=== PATIENT | female | born 1985 | race Caucasian/White ===

== ENCOUNTER 2016-07-20 13:37 | Outpatient (CLI) | payer BC ==
[2016-07-20 15:32] VITALS: BP 141/81; PULSE 86; RESP 18; TEMP 98.4
== END 2016-07-20 14:35 | disposition home or self-care (01) ==
LOC: FBPOP 13:37
PROVIDERS: ATTEND Obstetrics & Gynecology
DX: O26.93 Pregnancy related conditions, unspecified, third trimester (principal); Z3A.38 38 weeks gestation of pregnancy
CPT/HCPCS: 59025; 99213

== ENCOUNTER 2016-07-21 21:55 | Inpatient (IN) | payer BC ==
[2016-07-21] MEDS ORDERED: CITRIC ACID-SODIUM CITRATE 15 ML CUP PO ONE (22:19)
[2016-07-21] MEDS ORDERED: LACTATED RINGERS 1,000 ML IV ONE (22:19)
[2016-07-21] MEDS ORDERED: ceFAZolin 2 GM in SODIUM CHLORIDE 0.9% 100 ML IVPB STA (22:27)
--- NOTE | 2016-07-21 22:32 | P.HPOB ---
History of Present Illness H&P Date: 07/21/16 Chief Complaint: Labor at 38+ weeks This is a 30-year-old 2 para 1001 woman with an estimated due date of who presents at 38-3/7 weeks gestation in spontaneous active labor. She reports onset of regular uterine contractions approximately 2 hours ago. She denies leakage of fluids or vaginal bleeding. Her obstetric history is significant for previous low transverse section at 39 weeks for breech presentation. She declines vaginal after and requests repeat section. Laboratory data: Group B strep negative, blood type A+, antibody screen negative , rubella immune, VDRL nonreactive, hepatitis B surface antigen negative, HIV negative Review of Systems All systems: negative Past Medical History Past Medical History: No Reported History History of Any Multi-Drug Resistant Organisms: None Reported Past Surgical History: Section Additional Past Surgical History / Comment(s): wisdom teeth Past Anesthesia/Blood Transfusion Reactions: No Reported Reaction Past Psychological History: No Psychological Hx Reported Smoking Status: Never smoker Past Alcohol Use History: None Reported Past Drug Use History: None Reported - Past Family History Mother Family Medical History: No Reported History Medications and Allergies Home Medications Medication Instructions Recorded Confirmed Type Pnv with Ca,No.72/Iron/FA 1 each PO DAILY 07/20/16 07/21/16 History [ Plus Tablet] Allergies Allergy/AdvReac Type Severity Reaction Status Date / Time Penicillins AdvReac Unknown Verified 07/21/16 22:19 Exam - Vital Signs Vital signs: Vital Signs Temp Pulse Resp BP 07/21/16 22:24 97.2 F L 65 16 136/82 Intake and Output 07/21/16 07/21/16 07/21/16 06:59 14:59 22:59 Other: Weight 73.936 kg Patient Weight 07/22/16 06:59 Weight 73.936 kg Targeted physical exam was performed. The patient is visibly gravid female in active labor. Abdomen is gravid with a fundal height of approximately 38 cm. Strong palpable contractions. Cervix is 4 cm dilated, 90 % effaced and the vertex is in the -2 station. Bulging membranes. heart tones are reassuring by external monitoring. She is janiya every 2 minutes spontaneously. Assessment and Plan (1) 38 weeks gestation of Status: Acute (2) History of Status: Acute (3) Spontaneous onset of labor Status: Acute Plan: This is a 30-year-old 2 para 1 woman at 38-3/7 weeks gestation who presents in spontaneous active labor. She has history of previous low transverse section and is requesting repeat section for delivery. She did declines trial of labor. status is currently reassuring by external monitoring. She is group B strep negative and Rh+ . Risks benefits and alternatives to repeat have been reviewed with the patient in detail in the office setting.
[2016-07-21 22:47] LABS: Basophils % (A) 0 %; CH 29.9; CHCM 34.2; Eosinophils # (A) 0.2 k/uL (0-0.7); Eosinophils % (A) 2 %; HCT 38.6 % (34.0-46.0); HDW 2.47; HGB 12.9 gm/dL (11.4-16.0); Luc # (Auto) 0.29; Luc % (Auto) 3; Lymphocytes # (A) 1.4 k/uL (1.0-4.8); Lymphocytes % (A) 14 %; MCH 29.3 pg (25.0-35.0); MCHC 33.4 g/dL (31.0-37.0); MCV 87.8 fL (80.0-100.0); Mean Platelet Volume 6.8; Monocytes # (A) 0.5 k/uL (0-1.0); Monocytes % (A) 5 %; Neutrophils # (A) 8.1 k/uL (1.3-7.7); Neutrophils % (A) 76 %; RBC 4.39 m/uL (3.80-5.40); WBC 10.6 k/uL (3.8-10.6); WBC (Perox) 10.89
[2016-07-21] MEDS ORDERED: ONDANSETRON 4 MG/2 ML VIAL ONE (22:54)
[2016-07-21] MEDS ORDERED: MORPHINE SULFATE (PF) 0.3 MG/0.3 ML SYR ONE (22:54)
[2016-07-21] MEDS ORDERED: KETOROLAC 30 MG/ML 1 ML VIAL ONE (22:54)
[2016-07-21] MEDS ORDERED: OXYTOCIN 10 UNIT/ML 1 ML VIAL ONE (22:54)
[2016-07-21] MEDS ORDERED: PHENYLEPHRINE-0.9% NACL SYG 1 MG/10 ML SYRINGE ONE (22:54)
[2016-07-21] MEDS ORDERED: NALBUPHINE 10 MG/ML AMPUL ONE (22:54)
[2016-07-21] MEDS ORDERED: ePHEDrine 50 MG/ML 1 ML AMP ONE (22:54)
[2016-07-21] MEDS ORDERED: diphenhydrAMINE 50 MG CAP PO PRN (23:37)
[2016-07-21] MEDS ORDERED: diphenhydrAMINE 25 MG CAP PO PRN (23:37)
[2016-07-21] MEDS ORDERED: diphenhydrAMINE 50 MG/ML 1 ML VIAL IVP PRN ×2 (23:37)
[2016-07-21] MEDS ORDERED: ACETAMINOPHEN TAB 325 MG TAB PO PRN (23:37)
[2016-07-21] MEDS ORDERED: SIMETHICONE 80 MG CHEWABLE PO PRN (23:37)
[2016-07-21] MEDS ORDERED: Acetaminophen-Codeine 300-30mg TAB PO PRN ×2 (23:37)
[2016-07-21] MEDS ORDERED: METOCLOPRAMIDE 5 MG/ML 2 ML VIAL IVP PRN (23:37)
[2016-07-21] MEDS ORDERED: ONDANSETRON 4 MG/2 ML VIAL IVP PRN (23:37)
[2016-07-21] MEDS ORDERED: NALOXONE 0.4 MG/ML 1 ML VIAL IV PRN (23:37)
[2016-07-21] MEDS ORDERED: ZOLPIDEM 5 MG TAB PO PRN (23:37)
--- NOTE | 2016-07-21 23:37 | P.OP ---
Date of Procedure: 07/21/16 Preoperative Diagnosis: Labor at 38-3/7 weeks gestation History of previous low transverse section Declines trial of labor Postoperative Diagnosis: Same Procedure(s) Performed: Repeat low transverse section Anesthesia: spinal Surgeon: Bertha Lr Public Address System Operator #1: Andrew Zepeda Estimated Blood Loss (ml): 500 IV fluids (ml): 900 Urine output (ml): 200 Pathology: other (Placenta) Condition: stable Disposition: floor Operative Findings: Male in the vertex presentation with Apgars of 8 at 1 minute and 9 at 5 minutes weighing 7 lbs. 11 oz., 3500 g. Intact, three-vessel cord placenta. Normal appearing uterus, bilateral tubes and ovaries. Description of Procedure: After the patient was met preoperatively and all questions were answered, she was taken to the operating room where spinal anesthetic was administered without incident. She was then positioned, prepped and draped in the dorsal supine position with a leftward tilt. Martin catheter was placed. After anesthetic was confirmed adequate, a low transverse skin incision was made following the pre-existing scar. This was carried down to the underlying fascia both sharply and with the electrocautery. The fascia was then incised in the midline and extended bilaterally with the William scissors. The superior aspect of the fascial incision was elevated and the underlying rectus muscles dissected off sharply and with the electrocautery. The inferior aspect of the fascial incision was also elevated and the underlying rectus muscles dissected off sharply. The muscles were adherent in the midline. These were bluntly and the peritoneum was tented up with hemostats. The peritoneum was entered sharply with the Metzenbaum scissors. The peritoneal incision was extended inferiorly and superiorly with good visualization of the bladder. The bladder blade was placed. The vesicouterine peritoneum was identified, tented up and entered sharply, the bladder flap was created both sharply and digitally. A low transverse uterine incision was then made sharply and carried down to the underlying amniotic membranes. Membranes were ruptured and clear fluid was noted. The uterine incision was extended bilaterally bluntly. The 's head was delivered from the incision without difficulty. The nose and mouth were bulb suctioned. The rest of the infant was delivered onto the field without difficulty. And cut and the infant was taken to the warmer. An intact , three-vessel cord placenta was then manually removed and the uterus was exteriorized. The uterus was cleared of all clot and debris. The uterine incision was delineated with Brooks clamps. The uterine incision was then closed in a running locked fashion with 0 Vicryl suture. A second imbricating layer with the same suture was placed. Additional [id number] sutures were placed where necessary along the incision for hemostasis. The uterus was then returned to the abdomen and the gutters were cleared of all clot and debris. The uterine incision was reinspected and Bovie electrocautery was utilized were necessary for hemostasis. The fascial edges, peritoneal edges and rectus muscles were inspected and Bovie electrocautery utilized were necessary for hemostasis. The rectus muscles were reapproximated in the midline with 0 Vicryl suture. The fascia was then closed in a running fashion with 0 Vicryl suture. The subcuticular tissue was copiously suction irrigated and Bovie electrocautery utilized were necessary for hemostasis. 3-0 Vicryl suture was utilized to reapproximate the subcuticular tissue. The skin was then closed in a subcutaneous fashion with 4-0 Vicryl suture. All counts reported to me as correct by the operating room staff at the end of the procedure. The patient received antibiotics preoperatively and Pitocin following cord clamp. Mother and infant were both transported from the room in stable condition.
[2016-07-21] MEDS ORDERED: OXYTOCIN 20 UNITS/1000 ML NS 1,000 ML IV SCH (23:45)
[2016-07-22] MEDS: LACTATED RINGERS 1,000 ML IV SCH ×3 (00:08→16:15)
[2016-07-22] MEDS: KETOROLAC 30 MG/ML 1 ML VIAL IVP PRN ×3 (08:21→20:04)
[2016-07-22 08:30] LABS: Basophils % (A) 0 %; CH 29.6; CHCM 33.8; Eosinophils # (A) 0.1 k/uL (0-0.7); Eosinophils % (A) 1 %; HCT 31.1 % (34.0-46.0); HDW 2.42; HGB 10.4 gm/dL (11.4-16.0); Luc # (Auto) 0.16; Luc % (Auto) 2; Lymphocytes # (A) 1.1 k/uL (1.0-4.8); Lymphocytes % (A) 11 %; MCH 29.3 pg (25.0-35.0); MCHC 33.3 g/dL (31.0-37.0); MCV 87.8 fL (80.0-100.0); Mean Platelet Volume 6.8; Monocytes # (A) 0.3 k/uL (0-1.0); Monocytes % (A) 3 %; Neutrophils # (A) 8.4 k/uL (1.3-7.7); Neutrophils % (A) 83 %; RBC 3.54 m/uL (3.80-5.40); RDW 12.8 % (11.5-15.5); WBC (Perox) 10.21
--- NOTE | 2016-07-22 09:10 | P.PNOBGPC ---
Subjective - Subjective Patient reports: Reports appetite normal, Reports voiding normally, Reports pain well controlled, Reports ambulating normally : doing well Objective - Vital Signs Latest vital signs: Vital Signs Temp Pulse Resp BP Pulse Ox 07/22/16 07:51 97.8 F 72 16 109/52 98 07/22/16 05:05 14 07/22/16 04:00 98.2 F 99 16 112/61 99 07/22/16 01:38 97.5 F L 83 16 112/67 99 07/22/16 01:08 98.1 F 80 14 125/74 100 07/22/16 00:38 97.0 F L 82 14 138/61 98 07/22/16 00:23 83 16 130/81 99 07/22/16 00:08 97.5 F L 80 14 119/68 98 07/21/16 23:53 86 14 130/60 97 07/21/16 23:38 96.8 F L 85 14 121/59 99 07/21/16 22:24 97.2 F L 65 16 136/82 07/21/16 22:20 97.2 F L 65 16 136/82 Intake and Output 07/21/16 07/22/16 07/22/16 22:59 06:59 14:59 Intake Total 2900 50 Output Total 1150 Balance 1750 50 Intake: IV 900 Intake, IV Titration 2000 Amount Lactated Ringers 1,000 ml 1000 @ 125 mls/hr IV .Q8H REZA Rx#:[id number] Oxytocin 20 Units/1000 ml 1000 Ns 1,000 ml @ Per Protocol IV .Q0M REZA Rx#: [id number] Oral 50 Output: Urine 650 Estimated Blood Loss 500 Other: Voiding Method Indwelling Catheter Weight 73.936 kg - Exam Lungs: bilateral: normal Chest: Normal S1, Normal S2 Extremities: Present: normal Abdomen: Present: normal appearance, soft. Absent: distention, tenderness Incision: Present: normal, dry, intact Uterus: Present: normal, firm (Uterine fundus as tonic and nontender at the umbilicus.) - Labs Labs: Abnormal Lab Results - Last 24 Hours (Table) 07/21/16 07/22/16 Range/Units 22:30 08:04 RBC 3.54 L (3.80-5.40) m/uL Hgb 10.4 L (11.4-16.0) gm/dL Hct 31.1 L (34.0-46.0) % Neutrophils # 8.1 H 8.4 H (1.3-7.7) k/uL Assessment and Plan (1) S/P section Narrative/Plan: Teeny routine post operative care. Have encouraged her to ambulate in the halls at least 4 times daily. She is a possible candidate for discharge home tomorrow. Current Visit: Yes Status: Acute Code(s): Z98.891 - HISTORY OF UTERINE SCAR FROM PREVIOUS SURGERY SNOMED Code(s): 555493701
[2016-07-22] MEDS: SENNOSIDES-DOCUSATE SODIUM 1 EACH TAB PO SCH ×2 (10:04→20:14)
--- NOTE | 2016-07-22 12:11 | P.PN ---
Progress Note - Text 0736 Anesthesia POD 1. Patient is status post section under final anesthesia with intra-thecal preservative free morphine 300 g. Mild pruritus, would post-op analgesia, and no headache or other complication.
[2016-07-23] MEDS: IBUPROFEN 600 MG TAB PO PRN ×2 (05:18→14:11)
--- NOTE | 2016-07-23 08:51 | P.DS ---
Providers Date of admission: 07/21/16 22:17 Expected date of discharge: 07/23/16 Attending physician: Mike Ann Primary care physician: Mike Ann - Discharge Diagnosis(es) (1) S/P section Current Visit: Yes Status: Acute Hospital Course: The patient is a 30-year-old 2 para 1001 admitted at 38-3/7 weeks by good dating parameters. She is admitted in early active labor with history of a previous section and declined vaginal trial of labor. As result, she was taken to the operating room where she was delivered by repeat low transverse section of a viable 7 lbs. 11 oz. baby boy with Apgars of 8 at 1 minute and 9 at 5 minutes. Her postoperative course was unremarkable with vital signs remaining stable and her temperature was afebrile throughout. She was deemed stable for discharge by postoperative day #2 was discharged home to follow-up in the office in 2 weeks for an incision check and 6 weeks time routinely. Discharge instructions included calling for any significantly increased bleeding or foul-smelling lochia, significantly increased fever or abdominal pain, perineal complaints, breast complaints, incisional complaints, or anything else that concerned her. She was additionally instructed to have nothing in the vagina for at least 6 weeks time to include intercourse and to abstain from any heavy lifting over the same period of time. She was lastly instructed to do no driving until off of all pain medications or 2 weeks' time, whichever came first. She understood her instructions and agrees to follow up as noted above. Discharge medications included vqtz-ofq-waaqeyy analgesic medications as well as a prescription for Tylenol 3, 1-2 by mouth every 6 hours when necessary pain, #30 dispensed with no refills. She was additionally to continue using vitamins daily as she has opted to breast-feed. Maternal blood type is A+ and rubella status is immune. Discharge hemoglobin and hematocrit were 10.4 and 31.1 respectively. Procedures: #1. Repeat low transverse section Patient Condition at Discharge: Good Plan - Discharge Summary New Discharge Prescriptions: Acetaminophen-Codeine 300-30mg [Tylenol #3] 2 tab PO Q6H PRN #30 tablet PRN Reason: Pain Discharge Medication List Pnv with Ca,No.72/Iron/FA [ Plus Tablet] 1 each PO DAILY 07/20/16 [ History] Acetaminophen-Codeine 300-30mg [Tylenol #3] 2 tab PO Q6H PRN #30 tablet [Rx] Follow up Appointment(s)/Referral(s): Mike Ann MD [Primary Care Provider] - 2 Weeks Discharge Disposition: HOME SELF-CARE
[2016-07-23] MEDS: SENNOSIDES-DOCUSATE SODIUM 1 EACH TAB PO SCH (09:05)
[2016-07-23 10:21] VITALS: BP 118/71; PULSE 72; RESP 18; TEMP 98.2
== END 2016-07-23 17:15 | disposition home or self-care (01) | DRG 766 ==
LOC: FBPOP 21:55 → 4FBP 22:17
PROVIDERS: ADMIT Obstetrics & Gynecology; ATTEND Obstetrics & Gynecology
PROC: 10D00Z1 Extraction of Products of Conception, Low, Open Approach (ICD-10-PCS; principal; 2016-07-21 22:54)
DX: O34.211 Maternal care for low transverse scar from previous cesarean delivery (principal); O75.89 Other specified complications of labor and delivery; L29.9 Pruritus, unspecified; Z37.0 Single live birth; Z3A.38 38 weeks gestation of pregnancy
CPT/HCPCS: 59025; 85025; 86850; 86900; 86901; 88307; 99213

== ENCOUNTER → 2017-02-02 | Outpatient (CLI) | payer BC ==
--- NOTE | 2017-02-02 16:38 | XR ---
EXAMINATION TYPE: XR KUB DATE OF EXAM: 02/02/2017 4:26 PM CLINICAL HISTORY: Evaluate for intrauterine device location. TECHNIQUE: Single supine image of the abdomen is obtained. COMPARISON: None. FINDINGS: Scattered gas is seen in non-distended small bowel loops. Gas and fecal material is seen in non-distended colon. The osseous structures are intact. Radiopaque intrauterine device is seen exten ding from the left para midline into the left mid pelvis. IMPRESSION: 1. Radiopaque intrauterine device begins at the left para midline pelvis extending into the left mid hemipelvis. 2. Nonobstructive bowel gas pattern.
== END | disposition home or self-care (01) ==
LOC: RADXRMAIN 16:18
PROVIDERS: ATTEND Obstetrics & Gynecology
DX: R68.89 Other general symptoms and signs (principal); Z97.5 Presence of (intrauterine) contraceptive device
CPT/HCPCS: 74000

== ENCOUNTER → 2017-09-06 | Outpatient (CLI) | payer BC ==
--- NOTE | 2017-09-07 08:38 | XR ---
EXAMINATION TYPE: XR abdomen 1V DATE OF EXAM: 09/06/2017 COMPARISON: 02/02/2017 HISTORY: IUD location TECHNIQUE: Single supine KUB image of the abdomen is obtained FINDINGS: No significant change in positioning of the IUD is noted to lie nearly transverse in orientation from a left para midline into the left mid pelvis. Small bowel demonstrates no evidence for dilatation or air fluid levels. Gas and fecal material is seen in non-distended colon. No convincing evidence for pneumoperitoneum. No unusual calcifications. The lung bases are clear. The osseous structures are intact. IMPRESSION: 1. No significant change in IUD device.
== END | disposition home or self-care (01) ==
LOC: RADXRMAIN 15:35
PROVIDERS: ATTEND Obstetrics & Gynecology
DX: T18.8XXA Foreign body in other parts of alimentary tract, initial encounter (principal); Z97.5 Presence of (intrauterine) contraceptive device
CPT/HCPCS: 74018

== ENCOUNTER → 2017-09-23 | Outpatient (CLI) | payer BC ==
[2017-09-23 12:31] LABS: Basophils # (A) 0.1 k/uL (0-0.2); Basophils % (A) 1 %; Eosinophils # (A) 0.4 k/uL (0-0.7); Eosinophils % (A) 10 %; HCT 43.9 % (34.0-46.0); HGB 14.3 gm/dL (11.4-16.0); Lymphocytes # (A) 1.5 k/uL (1.0-4.8); Lymphocytes % (A) 35 %; MCH 28.4 pg (25.0-35.0); MCHC 32.6 g/dL (31.0-37.0); Mean Platelet Volume 6.1; Monocytes # (A) 0.2 k/uL (0-1.0); Monocytes % (A) 5 %; Neutrophils % (A) 47 %; Platelet Count 245 k/uL (150-450); RBC 5.04 m/uL (3.80-5.40); RDW 12.5 % (11.5-15.5); WBC 4.2 k/uL (3.8-10.6)
== END | disposition home or self-care (01) ==
LOC: LABPAT 11:48
PROVIDERS: ATTEND Obstetrics & Gynecology
DX: Z01.812 Encounter for preprocedural laboratory examination (principal)
CPT/HCPCS: 36415; 85025

== ENCOUNTER 2017-10-11 07:48 | Day surgery (SDC) | payer BC ==
[2017-10-06 14:53] VITALS: BMI 25.3
--- NOTE | 2017-10-07 15:20 | HP ---
HISTORY AND PHYSICAL DATE OF SERVICE: 10/07/2017 DATE OF SURGERY: 10/11/2017 HISTORY OF PRESENT ILLNESS: The patient is a 31-year-old 2, para 2-0-0-2 who presents to the office with a known displacement of a Mirena IUD. She had a delivery approximately 12-14 months ago and, at her 6 week appointment, requested placement of a Mirena IUD. The device was placed without apparent difficulty but, at the 2 month recheck for IUD strings, they were not identified. Ultrasound failed to demonstrate the IUD in the uterus and she underwent x-ray, which demonstrated the IUD to be in the left lateral pelvis. Subsequent MRI failed to identify the exact location of the IUD. The patient was counseled at that time that it could be observed or we could attempt to retrieve it surgically. She then followed her symptoms for a period of time, but ultimately opted to have it surgically removed. Repeat x-ray of the abdomen demonstrates the IUD to be in the same location as previously demonstrated. I suspect that it may have penetrated the scar and will be found at or immediately adjacent to the uterus. In either case, she has requested that it be removed if possible. She has no other secondary symptoms. She has been using an oral contraceptive pill for contraception in the meantime. PAST MEDICAL HISTORY: None. PAST SURGICAL HISTORY: Significant for section x2, as well as wisdom teeth extraction in the past. There has been no anesthetic concerns. OBSTETRICAL HISTORY: 2, para 2-0-0-2 with two term deliveries that were uncomplicated in nature. Last contraception currently is oral contraceptive pill. GYNECOLOGIC HISTORY: Unremarkable except as pertains to the history of present illness. FAMILY HISTORY: Noncontributory. SOCIAL HISTORY: The patient is and works as a speech pathologist. She is a nonsmoker and denies any alcohol, drugs, or any other social concerns. CURRENT MEDICATIONS INCLUDE: 1. . 2. As well as a continue vitamin. 3. Claritin as needed. ALLERGIES: PENICILLIN caused an unclear reaction. REVIEW OF SYSTEMS: Confined to history of present illness. PHYSICAL EXAMINATION: Her vital signs are stable. The patient is afebrile. In general, this is a well- developed, well-nourished white female in no acute distress. HEENT demonstrates PERRLA, EOMI, her oropharynx is clear. Her neck is supple and without adenopathy and the thyroid is normal to palpation. Her heart has a regular rhythm and rate without murmur. Her lungs are clear to auscultation bilaterally in all wang. Her abdomen is nondistended, has normoactive bowel sounds, is soft, nontender, and without any palpable masses, hepatosplenomegaly, or hernias. Her extremities are without any cyanosis, clubbing, or edema and are nontender to palpation bilaterally. Pelvic examination demonstrates normal external genitalia and BUS with normal vaginal mucosa and cervix. There is no cervical motion tenderness. The uterus is approximately 4-5 weeks in size, slightly anteverted, mobile, nontender, and normal in shape. The adnexa are normal and nontender without mass bilaterally. ASSESSMENT AND PLAN: Displacement of Mirena IUD: The patient has requested that it be removed surgically if possible. As a result, we will proceed with diagnostic laparoscopy and possible Da Mendoza assisted excision of the migrant IUD. The risks and complications of the procedure have been thoroughly discussed including the risks for bleeding, bleeding requiring transfusion, infection, and injury to local structures, which could include the bowel, bladder, and possibly the ureters. Depending on the site of the IUD, which may be entangled in bowel or omentum, this could increase the risk for a bowel injury at which time, should these findings be noted, General Surgery will be consulted intraoperatively. She has understood all these concerns and has agreed to proceed. MMODL / IJN: [id number] /
[~2017-10-11 07:48] MED LIST: DEXAMETHASONE SOD PHOSPHATE 10 MG/ML 1 ML VIAL IV ONE; HYDROmorphone 1 MG/ML 1 ML SYRINGE IVP PRN; LACTATED RINGERS 1,000 ML IV SCH; LIDOCAINE 1% 20 ML VIAL (10MG/ML) FOR IV START INTRADERMA PRN; MIDAZOLAM 2 MG/2 ML VIAL IV PRN; ONDANSETRON 4 MG/2 ML VIAL IVP ONE; Pre Op ABX Message 1 EACH MISC MISCELLANE ONE; SCOPOLAMINE 1.5MG/72HR PATCH TRANSDERM ONE
[2017-10-11] MEDS ORDERED: LACTATED RINGERS 1,000 ML IV ONE (08:15)
[2017-10-11] MEDS ORDERED: SUCCINYLCHOLINE CHLORIDE 100 MG/5 ML SYR IV ONE (10:02)
[2017-10-11] MEDS ORDERED: MIDAZOLAM 2 MG/2 ML VIAL ONE (10:02)
[2017-10-11] MEDS ORDERED: NEOSTIGMINE 1 MG/ML 10 ML VIAL ONE (10:02)
[2017-10-11] MEDS ORDERED: PROPOFOL 10 MG/ML 20 ML VIAL IV ONE (10:02)
[2017-10-11] MEDS ORDERED: LIDOCAINE 1% INJ 10MG/ML (20 ML MDV) ONE (10:02)
[2017-10-11] MEDS ORDERED: fentaNYL (PF) 50 MCG/ML 2 ML AMP ONE (10:02)
[2017-10-11] MEDS ORDERED: GLYCOPYRROLATE 0.2 MG/ML 2 ML VIAL ONE (10:02)
[2017-10-11] MEDS ORDERED: VECURONIUM 10 MG VIAL IV ONE (10:02)
[2017-10-11] MEDS ORDERED: ROPIVACAINE 5 MG/ML 30 ML VIAL MISCELLANE ONE ×2 (10:29)
[2017-10-11] MEDS ORDERED: IBUPROFEN 600 MG TAB PO PRN (10:38)
[2017-10-11] MEDS ORDERED: ONDANSETRON 4 MG/2 ML VIAL IVP PRN (10:38)
[2017-10-11] MEDS ORDERED: METOCLOPRAMIDE 5 MG/ML 2 ML VIAL IVP PRN (10:38)
[2017-10-11] MEDS ORDERED: Acetaminophen-Codeine 300-30mg TAB PO PRN ×2 (10:38)
[2017-10-11] MEDS ORDERED: diphenhydrAMINE 50 MG/ML 1 ML VIAL IVP PRN (10:38)
[2017-10-11] MEDS ORDERED: KETOROLAC 30 MG/ML 1 ML VIAL IVP PRN (10:38)
[2017-10-11] MEDS ORDERED: SIMETHICONE 80 MG CHEWABLE PO PRN (10:38)
[2017-10-11] MEDS ORDERED: LACTATED RINGERS 1,000 ML IV SCH (10:45)
--- NOTE | 2017-10-11 10:47 | P.OP ---
Date of Procedure: 10/11/17 Preoperative Diagnosis: #1. Migrant IUD Postoperative Diagnosis: Same Procedure(s) Performed: #1. Laparoscopic removal of migraine IUD Anesthesia: CARLOS Surgeon: Mike Ann Estimated Blood Loss (ml): 5 IV fluids (ml): 400 Urine output (ml): 50 Pathology: none sent Condition: stable Disposition: PACU Operative Findings: Gravid pelvic examination inserted a 4 week midplane to slightly anteverted mobile normal shaped uterus with normal adnexa bilaterally. Intraoperatively, there was some scarring at the level of the bladder flap. Once the uterus was anteverted the IUD was identified penetrating an epiploic appendage of the sigmoid colon or high rectum. It was removed intact without difficulty with no further bleeding from the site of removal. Description of Procedure: The patient was prepped and draped in usual fashion after general endotracheal anesthesia was administered by the anesthesiologist. A weighted speculum was placed in the anterior lip of the cervix grasped with a single-tooth tenaculum. The bladder was draining approximately 50 mL of clear kya urine. An acorn cannula was placed into the cervix for manipulation of the uterus. Attention was turned to the abdomen where a roughly 5 mm incision was made in a semilunar fashion within the umbilicus allowing insertion of a 5 mm optical trocar under direct visualization without difficulty. A pneumoperitoneum was established and the uterus manipulated to identify the IUD in the cul-de-sac within the epiploic appendages noted above. A site was selected in the midline at the previous scar where a roughly 5 mm incision was made in the transverse plane allowing insertion of a 5 mm optical trocar under direct visualization without difficulty. A grasper was utilized to grasp the epiploic appendage containing the IUD. A site was selected in the right lower quadrant where an 8 mm incision was made in the transverse plane allowing insertion of an 8 mm da Mendoza port under direct visualization without difficulty. A simple grasper was utilized to grasp the end of the IUD and then blunt dissection was utilized to sweep the epiploic appendage off of the tip of the IUD to break the capsule at which time the entire IUD came through the epiploic appendage without difficulty. It was removed from the patient and discarded. Careful examination of the epiploic appendage demonstrated no further bleeding of any kind and it was released in the pelvis. All instrumentation was removed and the pneumoperitoneum evacuated entirely through one of the ports. The incisions were closed with interrupted subcuticular stitches of 4-0 Vicryl and then infused with a total of 10 mL of half percent ropivacaine equally divided between the 2 incisions. Estimated blood loss for the case was less than 5 mL. There were no complications. All sponge, instrument, and needle counts were correct. The patient tolerated the procedure well and proceeded to the recovery room in stable condition.
[2017-10-11 11:03] VITALS: RESP 16; TEMP 97.2
[2017-10-11 12:16] VITALS: BP 121/75; PULSE 58
== END 2017-10-11 12:44 | disposition home or self-care (01) ==
LOC: OR 07:48
PROVIDERS: ATTEND Obstetrics & Gynecology
DX: T83.32XA Displacement of intrauterine contraceptive device, initial encounter (principal); Y83.8 Other surgical procedures as the cause of abnormal reaction of the patient, or of later complication, without mention of misadventure at the time of the procedure; Z79.3 Long term (current) use of hormonal contraceptives; Z88.0 Allergy status to penicillin
CPT/HCPCS: 81025; 49329; J2250; J1100; J2710; J2405; J2001; J3010; J1170; J2795; J0330; J2704

== ENCOUNTER → 2021-09-02 | Outpatient (CLI) | payer OTHER ==
--- NOTE | 2021-09-03 08:30 | MM ---
Reason for Exam: Screening (asymptomatic). Baseline mammogram. Patient History: Menarche at age 14. First Full-Term at age 27. Paternal grandmother had breast cancer. Last menstrual period: 08/13/2021 Risk Values: Kate 5 year model risk: 0.3%. NCI Lifetime model risk: 10.4%. Prior Study Comparison: Patient's first Mammogram. No prior studies available for comparison. Tissue Density: The breast tissue is extremely dense which could obscure a lesion on mammography. Findings: Analyzed By CAD. Moles are marked bilaterally. No suspicious groups of microcalcifications, spiculated or lobular masses, architectural distortion or other secondary signs of malignancy are mammographically apparent. Overall Assessment: Negative, BI-RAD 1 Management: Screening Mammogram of both breasts at age 40. A negative mammogram report should not preclude additional follow up of suspicious palpable abnormalities. Patient should continue monthly self breast exam. A clinical breast exam by your physician is recommended on an annual basis and results should be correlated with mammographic findings. Electronically signed and approved by: Henrry Dailey D.O. Radiologis
== END | disposition home or self-care (01) ==
LOC: RADMAMWWP 14:29
PROVIDERS: ATTEND Obstetrics & Gynecology
DX: Z12.31 Encounter for screening mammogram for malignant neoplasm of breast (principal); Z80.3 Family history of malignant neoplasm of breast
CPT/HCPCS: 77067